=== PATIENT | male | born 2000 | race African-American/Black ===

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

== ENCOUNTER 2021-04-11 10:20 | Emergency (ER) | payer SELFPAY ==
[~2021-04-11] VITALS: Ht 170.2 cm; Wt 78.0 kg
[2021-04-11] MEDS ORDERED: NAPR-1176 MT (10:50)
[2021-04-11] MEDS ORDERED: ACET-2708 MT (10:50)
[2021-04-11] MEDS ORDERED: NAPROXEN 500MG TABLET PO NR (11:00)
[2021-04-11] MEDS ORDERED: NAPROXEN 375MG TABLET PO ONE (11:00)
[2021-04-11 11:13] VITALS: BP 127/81
== END 2021-04-11 11:15 | disposition home or self-care (01) ==
LOC: ER 10:20
DX: Z48.00 Encounter for change or removal of nonsurgical wound dressing (principal)
CPT/HCPCS: 99282

== ENCOUNTER 2021-10-10 21:19 | Emergency (ER) | payer MEDICAID ==
[~2021-10-10] VITALS: Ht 170.2 cm; Wt 75.0 kg
[~2021-10-10 21:19] MED LIST: ACET-2708 MT; NAPR-1176 MT
[2021-10-10] MEDS ORDERED: IBUPROFEN 600MG TABLET PO STA (23:30)
[2021-10-11 00:07] VITALS: BP 128/91
[2021-10-11] MEDS ORDERED: IBUP-2029 MT (00:48)
== END 2021-10-11 01:10 | disposition home or self-care (01) ==
LOC: ER 21:19
DX: S20.219A Contusion of unspecified front wall of thorax, initial encounter (principal); F12.10 Cannabis abuse, uncomplicated; V43.52XA Car driver injured in collision with other type car in traffic accident, initial encounter; W22.11XA Striking against or struck by driver side automobile airbag, initial encounter; Y93.89 Activity, other specified; Y92.488 Other paved roadways as the place of occurrence of the external cause
CPT/HCPCS: 71045; 99283

== ENCOUNTER 2022-06-18 18:00 | Emergency (ER) | payer MEDICAID ==
[~2022-06-18] VITALS: Ht 170.2 cm; Wt 82.0 kg
[~2022-06-18 18:00] MED LIST changes: +IBUP-2029 MT
[2022-06-18 18:03] VITALS: BP 138/69
[2022-06-18] MEDS ORDERED: DICYCLOMINE 10 MG/5 ML ORAL SYR PO STA (20:38)
[2022-06-18] MEDS ORDERED: MAGNESIUM/ALUMINUM HYDROXIDE/SIMETHICONE 30ML UDC PO STA (20:38)
[2022-06-18] MEDS ORDERED: VISCOUS LIDOCAINE 2% 15 ML UDC PO STA (20:38)
[2022-06-18] MEDS ORDERED: FAMOTIDINE 20MG TABLET PO ONE (20:45)
[2022-06-18] MEDS ORDERED: ONDANSETRON 4MG ODT PO ONE (21:15)
[2022-06-18 21:21] LABS: BASOPHILS % 0.1 % (0.0-2.0); HEMATOCRIT. 49.1 % (42.0-52.0); HEMOGLOBIN. 16.7 g/dL (14.0-18.0); MEAN CORPUSCULAR HEMOGLOBIN 28.7 pg (28.0-32.0); MEAN CORPUSCULAR VOLUME 84.2 fL (80.0-94.0); MEAN PLATELET VOLUME 6.7 fl (7.4-10.4); MONOCYTES % 14.7 % (2.0-8.0); NEUTROPHILS % 67.2 % (40.0-76.0); PLATELET 111 x1000/uL (130-400); RED BLOOD CELL COUNT 5.83 mill/uL (4.7-6.1); RED CELL DISTRIBUTION WIDTH 12.9 % (11.6-14.6)
[2022-06-20 06:15] LABS: CHLORIDE 101 mEq/L (98-107)
== END 2022-06-18 23:44 | disposition home or self-care (01) ==
LOC: ER 20:02
DX: R10.13 Epigastric pain (principal); F12.10 Cannabis abuse, uncomplicated
CPT/HCPCS: 36415; 80053; 83690; 85025; 99284; Q0162